=== PATIENT | male | born 1995 | race Caucasian/White ===

== ENCOUNTER 2018-05-20 17:51 | Emergency (ER) | payer OTHER, SELFPAY ==
[2018-05-20 17:52] VITALS: BP 146/84; PULSE 77; RESP 17; TEMP 36.9; O2SAT 99; BMI 30.1
--- NOTE | 2018-05-20 18:05 | EKG12_ITS ---
Test Reason : CP Blood Pressure : / mmHG Vent. Rate : 064 BPM Atrial Rate : 064 BPM P-R Int : 150 ms QRS Dur : 100 ms QT Int : 376 ms P-R-T Axes : 041 060 061 degrees QTc Int : 387 ms Normal sinus rhythm Consider precordial lead misplacement (V1-V2) Recommend repeat ECG Confirmed by FELICITA PUCKETT, KACIE ([id number]), acquisitions editor ABHI ROCHA ([id number] on 05/23/2018 10:30:34 AM Referred By: CAROLA/DEREK Confirmed By:KACIE MIMS MD
--- NOTE | 2018-05-20 18:05 | CT_ITS ---
STUDY: CTA CHEST REASON FOR EXAM: Male, 23 years old. Chest pain x1 month RADIATION DOSAGE (If Supplied By Facility): CTDIvol = ( 9.51 ) mGy, DLP = ( 646.09 ) mGycm TECHNIQUE: The examination was performed with the intravenous administration of 100ml ml of Isovue 370 contrast material. Post-processing of the angiographic images was performed, with multiplanar reformation and 3D reconstruction. Individualized dose optimization techniques were used for this CT. COMPARISON: None. FINDINGS: Normal enhancement of the main pulmonary artery and right and left pulmonary arteries. Normal enhancement of the bilateral peripheral pulmonary arteries. There is no demonstrated pulmonary embolism. Normal thoracic aorta and visualized great vessels. There is no demonstrated aortic dissection. Normal heart and pericardium. Normal mediastinum. Normal hilar regions. Normal visualized trachea and bronchi. The lungs are well expanded. Normal pulmonary parenchyma. Normal pleura. There is bilateral gynecomastia. Normal osseous structures. There is mild hepatosplenomegaly. There is hepatic steatosis. CT/CTA Chest W/WO Contrast IMPRESSION: Normal CTA chest examination, without a demonstrated pulmonary embolism or arterial dissection. There is no evidence of thoracic aortic aneurysm. There is bilateral gynecomastia. There is mild hepatosplenomegaly. There is hepatic steatosis. Electronically Signed: Ronald Rivera MD at 19:46 EDT , Service support ,
--- NOTE | 2018-05-20 18:08 | RAD_ITS ---
STUDY: X-RAY CHEST REASON FOR EXAM: Male, 23 years old. Chest pain TECHNIQUE: Single AP portable view of the chest. COMPARISON: None. FINDINGS: The lungs are clear and expanded. There is no demonstrated pleural abnormality. Normal size heart. Normal mediastinum and isidra. Normal visualized pulmonary arteries. Normal visualized aortic arch and descending thoracic aorta. Normal visualized thoracic spine. Normal visualized ribs, clavicles, and shoulders. There is no demonstrated abnormality of the visualized soft tissue structures of the upper abdomen. RAD/Chest 1 View (Portable) IMPRESSION: Normal x-ray examination of the chest. Electronically Signed: Ronald Rivera MD at 18:58 EDT , Service support ,
[2018-05-20] MEDS: Aspirin 81 MG TAB.CHEW 324 MG PO (18:12)
[2018-05-20] MEDS: 0.9% Normal Saline 1,000 ML 150 ML IV (18:13)
[2018-05-20 18:22] VITALS: O2SAT 99
[2018-05-20 18:32] LABS: Absolute Lymphocyte Count 2.49 X10^3/ul (0.83-4.51); Basophil# 0.03 X10^3/uL; Basophil% 0.4 % (0-1); Eosinophil# 0.08 X10^3/uL; Hematocrit 45.1 % (40-54); Lymphocyte # 2.49 X10^3/ul (4.0); Lymphocyte % 30.6 % (19-41); Mean Corp Hgb Conc 35.5 g/gl (32-36); Mean Corpuscular Volume 90.2 fL (80-94); Mean Platelet Vol. 10.4 fl (6.2-12.0); Monocyte# 0.51 X10^3/uL; Monocyte% 6.3 % (0-10); Neutrophil # 5.01 X10^3/uL (2.7-7.7); Neutrophil % 61.6 % (47-70); Platelet Count 298 K/mm3 (150-450); RBC Distribution Width CV 13.2 % (11.6-14.6); White Blood Count 8.1 K/mm3 (4.4-11.0)
[2018-05-20 18:33] LABS: POSITIVE COUNT NO; POSITIVE DIFFERENTIAL NO; POSITIVE MORPHOLOGY NO
[2018-05-20 18:49] LABS: Anion Gap 7 (5-15); BUN 17 mg/dL (7-18); BUN/Creat Ratio 16.8 RATIO (10-20); Chloride 105 mmol/L (98-107); Creatinine, Serum 1.01 mg/dL (0.70-1.30); EST Glomerular Filtration Rate 99 mL/min (>60); Est Glom Filt Rate - Afr Amer 120 mL/min (>60); Estimated Creatinine Clearance 115.69 ml/min; Glucose 79 mg/dL (74-106); Potassium 3.5 mmol/L (3.5-5.1); Sodium Level 138 mmol/L (136-145)
--- NOTE | 2018-05-20 20:31 | ED.DCSUM_ITS ---
- ER Visit Summary Date of Service: 05/20/18 Chief Complaint: Chest pain History of Present Illness: The patient is a 23 M with a one-month history of intermittent chest pain. He states it usually occurs at least once a day. It can last anywhere from minutes to hours. It can occur while he is sitting at rest or with exertion. He does get somewhat short of breath with it as well. 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 He spent 3 [facility] in [facility] at that time. His father also has a thoracic aortic aneurysm. Physical Examination: Vital signs unremarkable. Patient is in no acute distress. Heart is regular rate and rhythm. Lung sounds are clear with good air movement. There is no chest wall tenderness. Abdomen is soft nontender. Extremity examination was no calf tenderness or edema. Test Results: EKG is sinus at [address] change. CBC and chemistries are normal. Troponin negative. Portable chest x-ray is normal. Because of the family history of aneurysm a CTA of the chest was obtained and is normal. Emergency Department Course and Treatment: Patient did receive aspirin on arrival per protocol. On repeat evaluation patient is resting comfortably. Test results were discussed with him. Patient referred to Dr. Browning for follow-up, next on the no doc list. Treatment Plan: [] Disposition: Discharge Impression: Atypical chest pain This note was generated with [email or web address] dictation software. It may contain incorrect words, spelling, and punctuation that were not noted in review of the chart prior to signing ED Disposition - Plan for ED Patient: Chief Complaint: Chest Pain Referrals: Care Physician,No Primary [Primary Care Provider] -
--- NOTE | 2018-05-20 20:31 | ED.DEP ---
ED Disposition - Plan for ED Patient: Disposition: Home or Assisted Living Chief Complaint: Chest Pain Instructions: ED Chest Pain Atypical Unkn Cause Referrals: Shanti Browning MD [COURTESY STAFF PHYSICIAN] - As Needed
[2018-05-20 20:40] VITALS: BP 109/86; PULSE 66; RESP 14; O2SAT 97
== END 2018-05-20 20:40 | disposition home or self-care (01) ==
PROVIDERS: Emergency Provider Emergency Medicine
DX: R07.89 Other chest pain (principal); R06.00 Dyspnea, unspecified; Z84.89 Family history of other specified conditions
CPT/HCPCS: 71045; 71275; 80048; 84484; 85025; 93005; 99285; J7030; Q9967

== ENCOUNTER → 2018-06-15 15:15 | Outpatient (CLI) | payer OTHER, SELFPAY | LOC: HPRAD 15:17 | PROVIDERS: Family Provider Nurse Practitioner; PCP Nurse Practitioner; Visit Provider Nurse Practitioner | DX: M54.40 Lumbago with sciatica, unspecified side (principal) | CPT/HCPCS: 72110 ==

== ENCOUNTER → 2019-07-26 15:12 | Outpatient (CLI) | payer OTHER, SELFPAY ==
[2018-06-28 16:16] VITALS: BMI 35.0
--- NOTE | 2019-07-26 15:14 | RAD_ITS ---
STUDY: X-RAY - CERVICAL SPINE REASON FOR EXAM: Male, 24 years old. Pain and stiffness TECHNIQUE: 5 view(s) of the cervical spine were obtained. COMPARISON: None FINDINGS: Normal anterior atlantoaxial articulation. Normal odontoid process. Normal cervical lordosis. Normal vertebral bodies and endplates. Normal disc space heights. Normal visualized intervertebral neuroforamina. The soft tissue structures are unremarkable. RAD/Cerv Spine 4 or 5 Views IMPRESSION: Normal x-ray examination of the visualized cervical spine. Electronically Signed: Jermaine Mosher MD at 15:33 EDT Tel , Service support ,
== END ==
LOC: HPRAD 15:13
PROVIDERS: Family Provider Nurse Practitioner; PCP Nurse Practitioner; Referring Provider Nurse Practitioner; Visit Provider Nurse Practitioner
DX: M54.2 Cervicalgia (principal)
CPT/HCPCS: 72050

== ENCOUNTER → 2019-08-05 14:26 | Outpatient (CLI) | payer OTHER, SELFPAY ==
[2018-06-28 16:16] VITALS: BMI 35.0
--- NOTE | 2019-08-05 14:28 | RAD_ITS ---
STUDY: X-RAY CHEST REASON FOR EXAM: Male, 24 years old. Pain TECHNIQUE: Two view of the chest were performed COMPARISON: 20 May 2018 FINDINGS: Lungs are clear. There is no pneumothorax, pulmonary edema, pleural effusions or cardiomegaly. Osseous structures are intact. There is no gas under the diaphragms. [ ] RAD/Chest PA and Lateral IMPRESSION: 1. No acute cardiorespiratory disease. [ ] Electronically Signed: Fern Rajan, at 17:54 EDT Tel , Service support ,
== END ==
LOC: HPRAD 14:26
PROVIDERS: Family Provider Nurse Practitioner; PCP Nurse Practitioner; Referring Provider Nurse Practitioner; Visit Provider Nurse Practitioner
DX: R07.89 Other chest pain (principal)
CPT/HCPCS: 71046

== ENCOUNTER → 2019-08-19 12:45 | Outpatient (CLI) | payer OTHER, SELFPAY ==
[2018-06-28 16:16] VITALS: BMI 35.0
--- NOTE | 2019-08-19 12:48 | ECHOD_ITS ---
Reason For Study: CHEST PAIN Procedure This was a 2D Doppler, Color Flow transthoracic echocardiogram. Exam performed in department. Left Ventricle Normal LV size. Left ventricular systolic function is normal. The estimated ejection fraction is 55 %. Normal diastology for age. No regional wall motion abnormalities noted. Right Ventricle Normal RV size. Normal systolic function. Atria Normal left atrium. Normal right atrium. Mitral Valve Normal mitral valve. Tricuspid Valve Normal tricuspid valve. Aortic Valve Normal aortic valve. Trisinus/trileaflet aortic valve. Pulmonic Valve Normal pulmonic valve. Mild (1+) pulmonic valve insufficiency. Great Vessels Normal aortic root. The pulmonary artery is normal size. Normal inferior vena cava. Pericardium/Pleural No pericardial effusion. MMode/2D Measurements & Calculations LVIDd: 5.3 cm IVSd: 0.74 cm Ao root diam: 3.0 cm LVIDs: 3.6 cm LVPWd: 0.82 cm RVDd: 3.2 cm FS: 32.3 % LAV(MOD-bp): 38.8 ml LA A4 area: 13.2 cm2 LA dimension(2D): 4.1 cm LAV(MOD-bp) Indexed: 18.5 ml/m2 LAV(MOD-sp2): 43.4 ml LAV(MOD-sp4): 31.8 ml RA A4 area: 10.5 cm2 Time Measurements MV dec time: 0.29 sec Doppler Measurements & Calculations MV E max mahad: 67.7 cm/sec Lat Peak E' Mahad: 19.6 cm/sec Med Peak E' Mahad: 8.7 cm/sec MV A max mahad: 44.3 cm/sec E/E' lat: 3.5 E/E' med: 7.8 MV E/A: 1.5 Ao V2 max: 110.0 cm/sec LV V1 max: 106.3 cm/sec PA V2 max: 98.0 cm/sec Ao max P.8 mmHg LV V1 max P.5 mmHg TR max mahad: 214.4 cm/sec TR max P.5 mmHg Interpretation Summary Normal LV size. Left ventricular systolic function is normal. The estimated ejection fraction is 55 %. Normal diastology for age. Structurally normal valves. Ordering Physician: Cathy Best Referring Physician: Cathy Best Performed By: Mary Beth Glaser, MIRA, RVT
== END ==
LOC: CVS 12:47
PROVIDERS: Family Provider Nurse Practitioner; PCP Nurse Practitioner; Referring Provider Nurse Practitioner; Visit Provider Nurse Practitioner
DX: R07.89 Other chest pain (principal)
CPT/HCPCS: 93306

== ENCOUNTER → 2020-10-19 16:12 | Outpatient (CLI) | payer OTHER, SELFPAY ==
[2018-06-28 16:16] VITALS: BMI 35.0
--- NOTE | 2020-10-19 16:15 | RAD_ITS ---
STUDY: X-RAY - LUMBAR SPINE REASON FOR EXAM: Male, 25 years old. low back pain TECHNIQUE: 5 view(s) of the lumbar spine were obtained. COMPARISON: 06/15/2018 FINDINGS: There is straightening of the normal lumbar lordosis. There is no substantial scoliosis. There is a normal alignment of the vertebrae. Normal vertebral bodies and endplates. Normal disc space heights. The soft tissue structures are unremarkable. RAD/L/S Spine Min 4 Views IMPRESSION: Straightening of the normal lordotic curvature, possibly from muscular spasm. Electronically Signed: Jermaine Mosher MD at 17:04 EST Tel , Service support ,
== END ==
PROVIDERS: PCP Nurse Practitioner; Referring Provider Nurse Practitioner; Visit Provider Nurse Practitioner
DX: M54.5 Low back pain (principal)
CPT/HCPCS: 72110

== ENCOUNTER → 2022-07-06 | Outpatient (CLI) | payer OTHER, SELFPAY ==
--- NOTE | 2022-07-06 07:58 | US_ITS ---
STUDY: ABDOMINAL ULTRASOUND - ELASTOGRAPHY REASON FOR VISIT: Male, 27 years old. Fatty infiltration of the liver. TECHNIQUE: Liver stiffness measurements were obtained on a [employer] RS 85 ultrasound machine using a CA 1-7 probe following the SRU guidelines. 3 measurements were obtained using a 2-D-SWE method. The IQR/M was 16% suggesting a quality data set. TECHNICAL QUALITY: Adequate. COMPARISON: Comparison is made with prior examination of 07/06/2022. FINDINGS: Liver: Fatty infiltration of the liver. Median liver stiffness measured 6 kPa. US/Elastography Parenchyma/Organ IMPRESSION: Liver stiffness measures 6 kPa compatible with F2-F3 (Mild to moderate liver fibrosis) Metavir score. Electronically Signed: Morgan Lewis MD at 10:56 EDT ,
--- NOTE | 2022-07-06 07:58 | US_ITS ---
STUDY: ABDOMINAL ULTRASOUND - RIGHT UPPER QUADRANT REASON FOR VISIT: Male, 27 years old Hepatomegaly TECHNIQUE: Ultrasound evaluation of the right upper quadrant was performed with real-time and static santana-scale imaging. TECHNICAL QUALITY: Adequate. COMPARISON: None. FINDINGS: Liver: The liver measures 17.7 cm. There is increased echogenicity consistent with fatty infiltration. Focal fatty sparing is seen in the region of the gallbladder fossa. The bile ducts are within normal limits. There is hepatic color flow. The direction of portal flow is hepatopetal. There is no demonstrated mass lesion. Gallbladder: Normal distended gallbladder. The gallbladder wall measures 1.2 mm. There is a negative sonographic Contreras''s sign. There is no pericholecystic fluid. There are no gallstones. Common Bile Duct (C.B.D.): The common bile duct measures 2.8 mm. Pancreas: Normal size of the head, body of the pancreas. The tail portion was obscured due to overlying bowel gas. There is normal echogenicity of the pancreas. There is no demonstrated pancreatic mass or cyst. Right Kidney: Normal size of the right kidney. The right kidney measures 12.5 cm x 6.2 cm x 5.4 cm. Normal renal cortex. The right cortex measures 1.3 cm. There is no demonstrated renal mass or cyst. There is no right hydronephrosis. US/Abdomen Limited IMPRESSION: Fatty infiltration of the liver. Electronically Signed: Mogran Lewis MD at 10:13 EDT ,
== END | disposition home or self-care (01) ==
PROVIDERS: PCP Nurse Practitioner Family; Referring Provider Nurse Practitioner Family; Visit Provider Nurse Practitioner Family
DX: K76.0 Fatty (change of) liver, not elsewhere classified (principal); R74.8 Abnormal levels of other serum enzymes
CPT/HCPCS: 76705; 76981